=== PATIENT | female | born 1985 | race Two or more races ===

== ENCOUNTER 2019-08-09 10:48 | Inpatient (IN) | payer OTHER ==
[~2019-08-09] VITALS: Ht 157.5 cm; Wt 74.2 kg
--- NOTE | 2019-08-09 11:12 | PHYS DOC ---
Past Medical History Past Medical History: Seizure Adult General Chief Complaint Chief Complaint: SEIZURE HPI HPI Patient is a 33 year old female with history of seizure who presents via EMS because of seizure. Patient mother stated that she had 2 episodes of grand mal seizure without loss of urine or bowel and several episodes of focal seizures today. Patient is in postictal condition and unable to give history. Patient seen and neurologist at [facility] change Depakote to Zonifamide 6 months ago and had another episode of seizure one week ago. Patient denies and using drugs or alcohol or missing his medication. Patient had intermittent episodes of focal seizure at arrival to ER that was stopped with Ativan 2 mg IV. Review of Systems Review of Systems Unable to obtain because of postictal condition Current Medications Current Medications Current Medications Medications (Trade) Dose Ordered Sig/Luly Start Time Stop Time Status Last Admin Dose Admin Lorazepam (Ativan Inj) 2 mg 1X ONCE 08/09/19 11:00 08/09/19 11:16 DC 08/09/19 11:01 2 MG Physical Exam Physical Exam Constitutional: Well developed, well nourished, mild distress, non-toxic appearance. [] HENT: Normocephalic, atraumatic. Eyes: PERRLA, EOMI, conjunctiva normal, no discharge. [] Neck: Normal range of motion, no tenderness, supple, no stridor. [] Cardiovascular:Heart rate regular rhythm, no murmur [] Lungs & Thorax: Bilateral breath sounds clear to auscultation [] Abdomen: Bowel sounds normal, soft, no tenderness, no masses, no pulsatile masses. [] Skin: Warm, dry, no erythema, no rash. [] Back: No tenderness, no CVA tenderness. [] Extremities: No tenderness, no cyanosis, no clubbing, ROM intact, no edema. [] Neurologic: Alert and oriented X 1 in postictal condition, patient gradually became oriented 3, no focal deficits noted. [] Psychologic: Affect normal. Current Patient Data Vital Signs Vital Signs Date Time Temp Pulse Resp B/P (MAP) Pulse Ox O2 Delivery O2 Flow Rate FiO2 08/09/19 10:51 97.1 77 16 160/90 (113) 97 Room Air 97.1 Lab Values Laboratory Tests Test 08/09/19 10:50 White Blood Count 5.1 x10^3/uL (4.0-11.0) Red Blood Count 4.25 x10^6/uL (3.50-5.40) Hemoglobin 12.2 g/dL (12.0-15.5) Hematocrit 36.2 % (36.0-47.0) Mean Corpuscular Volume 85 fL (79-100) Mean Corpuscular Hemoglobin 29 pg (25-35) Mean Corpuscular Hemoglobin Concent 34 g/dL (31-37) Red Cell Distribution Width 14.1 % (11.5-14.5) Platelet Count 254 x10^3/uL (140-400) Neutrophils (%) (Auto) 56 % (31-73) Lymphocytes (%) (Auto) 35 % (24-48) Monocytes (%) (Auto) 7 % (0-9) Eosinophils (%) (Auto) 0 % (0-3) Basophils (%) (Auto) 1 % (0-3) Neutrophils # (Auto) 2.9 x10^3/uL (1.8-7.7) Lymphocytes # (Auto) 1.8 x10^3/uL (1.0-4.8) Monocytes # (Auto) 0.4 x10^3/uL (0.0-1.1) Eosinophils # (Auto) 0.0 x10^3/uL (0.0-0.7) Basophils # (Auto) 0.0 x10^3/uL (0.0-0.2) Sodium Level 139 mmol/L (136-145) Potassium Level 3.4 mmol/L (3.5-5.1) L Chloride Level 105 mmol/L (98-107) Carbon Dioxide Level 23 mmol/L (21-32) Anion Gap 11 (6-14) Blood Urea Nitrogen 11 mg/dL (7-20) Creatinine 0.8 mg/dL (0.6-1.0) Estimated GFR (Cockcroft-Gault) 82.1 BUN/Creatinine Ratio 14 (6-20) Glucose Level 97 mg/dL (70-99) Calcium Level 9.2 mg/dL (8.5-10.1) Total Bilirubin 0.3 mg/dL (0.2-1.0) Aspartate Amino Transferase (AST) 13 U/L (15-37) L Alanine Aminotransferase (ALT) 14 U/L (14-59) Alkaline Phosphatase 61 U/L (46-116) Creatine Kinase 41 U/L (26-192) Total Protein 7.8 g/dL (6.4-8.2) Albumin 4.0 g/dL (3.4-5.0) Albumin/Globulin Ratio 1.1 (1.0-1.7) Serum Test, Qualitative Negative (NEG) Laboratory Tests 08/09/19 10:50 Laboratory Tests 08/09/19 10:50 EKG EKG EKG interpreted by me. EKG at 1128 showed normal sinus rhythm at rate of 95 normal. And QT intervals, no acute ST and T-wave elevation. Radiology/Procedures Radiology/Procedures [facility] [address] [place] [address] IMAGING REPORT Signed PATIENT: JOSEFINA MARTINEZ ACCOUNT: [id number] : 1985 LOCATION: ED HOLD AGE: 33 SEX: F EXAM STATUS: ADM IN ORD. PHYSICIAN: KIRA MAURER MD REASON: seizure PROCEDURE: CT HEAD WO CONTRAST PQRS Compliance Statement: One or more of the following individualized dose reduction techniques were utilized for this examination: 1. Automated exposure control 2. Adjustment of the mA and/or kV according to patient size 3. Use of iterative reconstruction technique CT head without contrast 08/09/2019 11:06 AM INDICATION: Seizure COMPARISON: None available TECHNIQUE: Multiple axial CT images of the head were obtained from skull base through the vertex without intravenous contrast. FINDINGS: Head: Ventricles, sulci and basal cisterns are within normal limits. There is no hydrocephalus. Carl-white matter differentiation is normal. There is no acute intracranial hemorrhage. There is no mass, mass effect or midline shift. Posterior fossa is normal in appearance. Visualized portions of the orbits are normal. Paranasal sinuses are well aerated. Mastoid air cells are well aerated. Scalp and calvaria are normal. IMPRESSION: No acute intracranial hemorrhage. Electronically signed by: Magui Reyes MD (08/09/2019 12:38 PM) [id number] Course & Med Decision Making Course & Med Decision Making Pertinent Labs and Imaging studies reviewed. (See chart for details) Evaluation of patient in ER showed 33-year-old female patient with history of seizure with several episodes of seizure today. Patient was in postictal condition with unremarkable labs. CT was unremarkable. Because of several episodes of seizure plan to admit patient for observation. Patient had Ativan at arrival to ER without having seizure while she was in the emergency room. Patient requiring admission for further evaluation and treatment. Discussed with Dr. Nguyen who is in agreement with admission. Discussed findings and plan with patient and family, who acknowledge understanding and agreement. Dragon Disclaimer Dragon Disclaimer This electronic medical record was generated, in whole or in part, using a voice recognition dictation system. Departure Departure Impression: Primary Impression: Status epilepticus Additional Impression: Hypokalemia Disposition: 09 ADMITTED INPATIENT (at 1111) Admitting Physician: TIFFANY (Dr. Nguyenaccepted admission at 1110) Condition: GUARDED Referrals: UNKNOWN PCP NAME (PCP) Problem Qualifiers KIRA MAURER MD Aug 09, 2019 11:12
[2019-08-09] MEDS ORDERED: IV NORMAL SALINE 1000ML BAG 1,000 ML IV ONE (11:15)
[2019-08-09 11:24] LABS: BASO % 1 % (0-3); EOS % 0 % (0-3); HEMATOCRIT 36.2 % (36.0-47.0); HEMOGLOBIN 12.2 g/dL (12.0-15.5); LYMPH # 1.8 x10^3/uL (1.0-4.8); LYMPH % 35 % (24-48); MEAN CORPUSCULAR HEMOGLOBIN 29 pg (25-35); MEAN CORPUSCULAR HGB CONC 34 g/dL (31-37); MEAN CORPUSCULAR VOLUME 85 fL (79-100); MONO # 0.4 x10^3/uL (0.0-1.1); MONO % 7 % (0-9); NEUT # 2.9 x10^3/uL (1.8-7.7); NEUT % 56 % (31-73); PLATELET COUNT 254 x10^3/uL (140-400); RED BLOOD COUNT 4.25 x10^6/uL (3.50-5.40); RED CELL DISTRIBUTION WIDTH 14.1 % (11.5-14.5); WHITE BLOOD COUNT 5.1 x10^3/uL (4.0-11.0)
[2019-08-09 11:30] LABS: CALCIUM 9.2 mg/dL (8.5-10.1); CREATININE 0.8 mg/dL (0.6-1.0); GFR 82.1; POTASSIUM 3.4 mmol/L (3.5-5.1)
[2019-08-09 11:37] LABS: ALBUMIN/GLOBULIN RATIO 1.1 (1.0-1.7); TOTAL BILIRUBIN 0.3 mg/dL (0.2-1.0); TOTAL PROTEIN 7.8 g/dL (6.4-8.2)
--- NOTE | 2019-08-09 11:39 | PDOC1 ---
History and Physical Date of Admission: Date of Admission DATE: 08/09/19 TIME: 11:36 Chief Complaint: Chief Complain: Seizures History of Present Illness: HPI: This is a 33-year-old female who has had seizures since she was 7 years old We just adjusted her meds recently about 6 months ago Now she is having breakthrough seizures today She has had several was morning There witnessed by her mom and [id number] She has full tonic-clonic seizures She has urinary incontinence when she has the seizures Almost bites her tongue I discussed the case with ER physician were going to admit the patient and consult neurology and readjust her seizure meds Past Medical/Surgical History: PMH/PSH: Seizures Allergies: Allergies: Coded Allergies: No Known Drug Allergies (Unverified , 08/09/19) Family History: Family History: Hypertension Social History: Social Hisoty: She does not drink smoke or take drugs She works at [employer] Has 4 children the oldest is 17 Current Medications: Current Medications Current Medications Lorazepam (Ativan Inj) 2 mg STK-MED ONCE .ROUTE ; Start 08/09/19 at 10:53; Stop 08/09/19 at 10:53; Status DC Lorazepam (Ativan Inj) 2 mg 1X ONCE IVP Last administered on 08/09/19at 11:01; Start 08/09/19 at 11:00; Stop 08/09/19 at 11:16; Status DC Sodium Chloride 1,000 ml @ 1,000 mls/hr 1X ONCE IV ; Start 08/09/19 at 11:15; Stop 08/09/19 at 12:14 ROS: Review of Systems Review of System REVIEW OF SYSTEMS: GENERAL: Denies weakness SKIN: No bruising, hair changes or rashes. EYES: No blurred, double or loss of vision. NOSE AND THROAT: No history of nosebleeds, hoarseness or sore throat. HEART: No history of palpitations, chest pain or shortness of breath on exertion. LUNGS: Denies cough, hemoptysis, wheezing or shortness of breath. GASTROINTESTINAL: Denies changes in appetite, nausea, vomiting, diarrhea or constipation. GENITOURINARY: No history of frequency, urgency, hesitancy or nocturia. NEUROLOGIC: Complains of intermittent seizures today PSYCHIATRIC: Complains of depression ENDOCRINE: No history of heat or cold intolerance, polyuria or polydipsia. EXTREMITIES: Denies muscle weakness, joint pain, pain on walking or stiffness. Physical Exam: Vital Signs: Vital Signs Date Time Temp Pulse Resp B/P (MAP) Pulse Ox O2 Delivery O2 Flow Rate FiO2 08/09/19 10:51 97.1 77 16 160/90 (113) 97 Room Air 97.1 Physcial Exam: GEN: No apparent distress. Alert and oriented but slightly weak slow to answer questions HEENT: Normal cephalic, atraumatic, external auditory canals are patent EYES: Extraocular muscles are intact, pupil are equally round and reactive to light and accommodation MUSCULOSKELETAL: Well developed , well nourished, good range of motion ENDOCRINE: No thyromegaly was palpated LYMPHATICS: No cervical chain or axillary nodes were noted HEMATOPOIETIC: No bruising NECK: Supple, no JVD, no thyromegaly was noted LUNGS: Clear to auscultation in all lung herrera without rhonchi or wheezing HEART: RRR, S!, S2 present. Peripheral pulses intact, no obvious murmurs noted ABDOMEN: Soft, nontender. Positive bowel sounds, no organomegaly, normal bowel sounds EXTREMITIES: Without clubbing, cyanosis, or edema. Pedal pulses intact. Negative Homans sign NEUROLOGIC: Slow to answer questions A&O x 3, moves all extremities, no obvio us focal deficits PSYCHIATRIC: Normal affect, normal mood. Stable SKIN: No ulcerations or rashes, good skin turgor, no jaundice VASCULAR: Good capillary refill, neurovascular bundle appears to be intact Labs: Labs: Laboratory Tests Test 08/09/19 10:50 White Blood Count 5.1 x10^3/uL (4.0-11.0) Red Blood Count 4.25 x10^6/uL (3.50-5.40) Hemoglobin 12.2 g/dL (12.0-15.5) Hematocrit 36.2 % (36.0-47.0) Mean Corpuscular Volume 85 fL (79-100) Mean Corpuscular Hemoglobin 29 pg (25-35) Mean Corpuscular Hemoglobin Concent 34 g/dL (31-37) Red Cell Distribution Width 14.1 % (11.5-14.5) Platelet Count 254 x10^3/uL (140-400) Neutrophils (%) (Auto) 56 % (31-73) Lymphocytes (%) (Auto) 35 % (24-48) Monocytes (%) (Auto) 7 % (0-9) Eosinophils (%) (Auto) 0 % (0-3) Basophils (%) (Auto) 1 % (0-3) Neutrophils # (Auto) 2.9 x10^3/uL (1.8-7.7) Lymphocytes # (Auto) 1.8 x10^3/uL (1.0-4.8) Monocytes # (Auto) 0.4 x10^3/uL (0.0-1.1) Eosinophils # (Auto) 0.0 x10^3/uL (0.0-0.7) Basophils # (Auto) 0.0 x10^3/uL (0.0-0.2) Sodium Level 139 mmol/L (136-145) Potassium Level 3.4 mmol/L (3.5-5.1) Chloride Level 105 mmol/L (98-107) Carbon Dioxide Level 23 mmol/L (21-32) Anion Gap 11 (6-14) Blood Urea Nitrogen 11 mg/dL (7-20) Creatinine 0.8 mg/dL (0.6-1.0) Estimated GFR (Cockcroft-Gault) 82.1 BUN/Creatinine Ratio 14 (6-20) Glucose Level 97 mg/dL (70-99) Calcium Level 9.2 mg/dL (8.5-10.1) Laboratory Tests Test 08/09/19 10:50 White Blood Count 5.1 x10^3/uL (4.0-11.0) Red Blood Count 4.25 x10^6/uL (3.50-5.40) Hemoglobin 12.2 g/dL (12.0-15.5) Hematocrit 36.2 % (36.0-47.0) Mean Corpuscular Volume 85 fL (79-100) Mean Corpuscular Hemoglobin 29 pg (25-35) Mean Corpuscular Hemoglobin Concent 34 g/dL (31-37) Red Cell Distribution Width 14.1 % (11.5-14.5) Platelet Count 254 x10^3/uL (140-400) Neutrophils (%) (Auto) 56 % (31-73) Lymphocytes (%) (Auto) 35 % (24-48) Monocytes (%) (Auto) 7 % (0-9) Eosinophils (%) (Auto) 0 % (0-3) Basophils (%) (Auto) 1 % (0-3) Neutrophils # (Auto) 2.9 x10^3/uL (1.8-7.7) Lymphocytes # (Auto) 1.8 x10^3/uL (1.0-4.8) Monocytes # (Auto) 0.4 x10^3/uL (0.0-1.1) Eosinophils # (Auto) 0.0 x10^3/uL (0.0-0.7) Basophils # (Auto) 0.0 x10^3/uL (0.0-0.2) Sodium Level 139 mmol/L (136-145) Potassium Level 3.4 mmol/L (3.5-5.1) Chloride Level 105 mmol/L (98-107) Carbon Dioxide Level 23 mmol/L (21-32) Anion Gap 11 (6-14) Blood Urea Nitrogen 11 mg/dL (7-20) Creatinine 0.8 mg/dL (0.6-1.0) Estimated GFR (Cockcroft-Gault) 82.1 BUN/Creatinine Ratio 14 (6-20) Glucose Level 97 mg/dL (70-99) Calcium Level 9.2 mg/dL (8.5-10.1) Images: Images CT of the head did not show any acute changes Assessment/Plan Assessment/Plan Acute on chronic seizure disorder with acute flare of 4 seizures this morning Plan We need to readjust her seizure medications Seizure precautions Consult neurology IV fluids Home meds DVT prophylaxis Full code JIM LEDESMA III DO Aug 09, 2019 11:39
[2019-08-09] MEDS ORDERED: ZONI100C33 PO (11:45)
[2019-08-09 11:53] LABS: PREG TEST PT QUAL NEGATIVE (NEG)
[2019-08-09 12:05] LABS: BARBITURATES NEG (NEG); BENZODIAZEPINES NEG (NEG); CANNABINOIDS POS (NEG); COCAINE NEG (NEG); METHADONE NEG (NEG); OPIATES NEG (NEG); PHENCYCLIDINE NEG (NEG)
[2019-08-09 12:14] LABS: AMPHETAMINE/METHAMPHETAMINE NEG (NEG)
[2019-08-09 12:24] LABS: BILIRUBIN,URINE NEGATIVE (NEG); CLARITY,URINE CLEAR; COLOR,URINE YELLOW; NITRITE,URINE NEGATIVE (NEG); PH,URINE 6.5; PROTEIN,URINE NEGATIVE (NEG-TRACE)
[2019-08-09 12:26] LABS: BACTERIA,URINE FEW /HPF (0-FEW); RBC,URINE OCC /HPF (0-2); SQUAMOUS EPITHELIAL CELL,UR FEW /LPF
--- NOTE | 2019-08-09 12:30 | EKG ---
[facility] [address] [place] [address] Test Date: 2019-08-09 Test Time: 11:28:52 Pat Name: JOSEFINA MARTINEZ Department: Room: Gender: F Machine Maintenance Repairer: : 1985 Requested By: KIRA MAURER Order Number: [id number] Reading MD: Measurements Intervals [place] Rate: 83 P: 34 WV: 146 QRS: 36 QRSD: 100 T: 35 QT: 346 QTc: 411 Interpretive Statements SINUS RHYTHM NORMAL ECG No previous ECG available for comparison
--- NOTE | 2019-08-09 12:41 | RAD ---
PQRS Compliance Statement: One or more of the following individualized dose reduction techniques were utilized for this examination: 1. Automated exposure control 2. Adjustment of the mA and/or kV according to patient size 3. Use of iterative reconstruction technique CT head without contrast 08/09/2019 11:06 AM INDICATION: Seizure COMPARISON: None available TECHNIQUE: Multiple axial CT images of the head were obtained from skull base through the vertex without intravenous contrast. FINDINGS: Head: Ventricles, sulci and basal cisterns are within normal limits. There is no hydrocephalus. Carl-white matter differentiation is normal. There is no acute intracranial hemorrhage. There is no mass, mass effect or midline shift. Posterior fossa is normal in appearance. Visualized portions of the orbits are normal. Paranasal sinuses are well aerated. Mastoid air cells are well aerated. Scalp and calvaria are normal. IMPRESSION: No acute intracranial hemorrhage. Electronically signed by: Magui Ryees MD (08/09/2019 12:38 PM) [id number]
[2019-08-09 16:52] VITALS: BP 116/81
--- NOTE | 2019-08-09 18:12 | PDOC2 ---
NEUROLOGY CONSULT Date of Admission Date of Admission DATE: 08/09/19 TIME: 18:06 Reason for Consult Reason for Consult: status epilepticus Referring Physician Referring Physician: Dr. Nguyen Source Source: Caregiver (mother), Chart review, Patient History of Present Illness History of Present Illness The patient is a 33-year-old right-handed female with seizures at since age 7. She usually follows at . Mother says I last saw the patient about 20 years ago. She has been on Depakote for several years but about 6 months ago was switched to zonisamide. Mother would prefer switching her back to Depakote. There is no history of head injury or family history of seizures. She has generalized convulsions with incontinence and had 3 [id number] seizures this morning. She thinks she may have a urinary tract infection. She feels better now. I was not notified of this consult, I did see her on my list, no anticonvulsants have been started yet. Past Medical History CENTRAL NERVOUS SYSTEM: Seizure Past Surgical History Past Surgical History: No pertinent history Family History Family History: No pertinent hx Social History Social History Lives with mother, works at [employer], alcohol on weekends, no tobacco or street drugs Current Medications Current Medications Current Medications Lorazepam (Ativan Inj) 2 mg STK-MED ONCE .ROUTE ; Start 08/09/19 at 10:53; Stop 08/09/19 at 10:53; Status DC Lorazepam (Ativan Inj) 2 mg 1X ONCE IVP Last administered on 08/09/19at 11:01; Start 08/09/19 at 11:00; Stop 08/09/19 at 11:16; Status DC Sodium Chloride 1,000 ml @ 1,000 mls/hr 1X ONCE IV Last administered on 08/09/19at 11:50; Start 08/09/19 at 11:15; Stop 08/09/19 at 12:21; Status DC Active Scripts Active Reported Zonegran (Zonisamide) 100 Mg Capsule 3 Cap PO DAILYWSUP 30 Days Allergies Allergies: Coded Allergies: No Known Drug Allergies (Unverified , 08/09/19) ROS Review of System Negative for fever, chills, weight loss, shortness of breath, chest pain, indigestion, hematochezia, melena, and dysuria. Full 14-point review of systems is negative. Physical Exam Physical Examination General: Well-developed, well-nourished, white female, in no acute distress HEENT: Normocephalic andatraumatic. Temporal arteriespulsatile and nontender. Neck: Supple without bruit, no meningismus Musculoskeletal: Stability:see neurologic. Gait exam:see neurologic. Tone:see neurologic.Strength:see neurologic. Neurological: Mental Status:intact, orientation, memory, attention span/concentration, language, fund of knowledge normal. Cranial Nerves:Pupils equal and reactive to light, extraocular movements areintact, visual herrera are full to confrontation. Facial sensation is normal. There is no facial asymmetry. Vestibulo-ocular reflex is intact. Palate elevates and tongue protrudes in midline. All other cranial related problems are negative except as mentioned before.Reflexes:2+ and symmetric with flexor plantar responses. Motor:5/5 strength with normal tone and bulk. Coordination:Finger-nose finger and [id number]-zx-klta testing are normal. Rapid alternating movements and fine finger movements are intact. Gait:a little unsteady. Sensory:Normal pinprick, vibration, light touch, proprioception. Vitals VITALS Vital Signs Date Time Temp Pulse Resp B/P (MAP) Pulse Ox O2 Delivery O2 Flow Rate FiO2 08/09/19 16:52 98.1 94 18 116/81 (93) 100 Room Air 98.1 Labs Labs Laboratory Tests Test 08/09/19 10:50 08/09/19 11:34 White Blood Count 5.1 x10^3/uL (4.0-11.0) Red Blood Count 4.25 x10^6/uL (3.50-5.40) Hemoglobin 12.2 g/dL (12.0-15.5) Hematocrit 36.2 % (36.0-47.0) Mean Corpuscular Volume 85 fL (79-100) Mean Corpuscular Hemoglobin 29 pg (25-35) Mean Corpuscular Hemoglobin Concent 34 g/dL (31-37) Red Cell Distribution Width 14.1 % (11.5-14.5) Platelet Count 254 x10^3/uL (140-400) Neutrophils (%) (Auto) 56 % (31-73) Lymphocytes (%) (Auto) 35 % (24-48) Monocytes (%) (Auto) 7 % (0-9) Eosinophils (%) (Auto) 0 % (0-3) Basophils (%) (Auto) 1 % (0-3) Neutrophils # (Auto) 2.9 x10^3/uL (1.8-7.7) Lymphocytes # (Auto) 1.8 x10^3/uL (1.0-4.8) Monocytes # (Auto) 0.4 x10^3/uL (0.0-1.1) Eosinophils # (Auto) 0.0 x10^3/uL (0.0-0.7) Basophils # (Auto) 0.0 x10^3/uL (0.0-0.2) Sodium Level 139 mmol/L (136-145) Potassium Level 3.4 mmol/L (3.5-5.1) Chloride Level 105 mmol/L (98-107) Carbon Dioxide Level 23 mmol/L (21-32) Anion Gap 11 (6-14) Blood Urea Nitrogen 11 mg/dL (7-20) Creatinine 0.8 mg/dL (0.6-1.0) Estimated GFR (Cockcroft-Gault) 82.1 BUN/Creatinine Ratio 14 (6-20) Glucose Level 97 mg/dL (70-99) Calcium Level 9.2 mg/dL (8.5-10.1) Total Bilirubin 0.3 mg/dL (0.2-1.0) Aspartate Amino Transf (AST/SGOT) 13 U/L (15-37) Alanine Aminotransferase (ALT/SGPT) 14 U/L (14-59) Alkaline Phosphatase 61 U/L (46-116) Creatine Kinase 41 U/L (26-192) Total Protein 7.8 g/dL (6.4-8.2) Albumin 4.0 g/dL (3.4-5.0) Albumin/Globulin Ratio 1.1 (1.0-1.7) Serum Test, Qualitative Negative (NEG) Urine Collection Type U cath Urine Color Yellow Urine Clarity Clear Urine pH 6.5 Urine Specific [place] 1.025 Urine Protein Negative mg/dL (NEG-TRACE) Urine Glucose (UA) Negative mg/dL (NEG) Urine Ketones (Stick) Negative mg/dL (NEG) Urine Blood Negative (NEG) Urine Nitrite Negative (NEG) Urine Bilirubin Negative (NEG) Urine Urobilinogen Dipstick 1.0 mg/dL (0.2 mg/dL) Urine Leukocyte Esterase Negative (NEG) Urine RBC Occ /HPF (0-2) Urine WBC 1-4 /HPF (0-4) Urine Squamous Epithelial Cells Few /LPF Urine Bacteria Few /HPF (0-FEW) Urine Mucus Mod /LPF Urine Opiates Screen Neg (NEG) Urine Methadone Screen Neg (NEG) Urine Barbiturates Neg (NEG) Urine Phencyclidine Screen Neg (NEG) Urine Amphetamine/Methamphetamine Neg (NEG) Urine Benzodiazepines Screen Neg (NEG) Urine Cocaine Screen Neg (NEG) Urine Cannabinoids Screen Pos (NEG) Urine Ethyl Alcohol Neg (NEG) Laboratory Tests Test 08/09/19 10:50 08/09/19 11:34 White Blood Count 5.1 x10^3/uL (4.0-11.0) Red Blood Count 4.25 x10^6/uL (3.50-5.40) Hemoglobin 12.2 g/dL (12.0-15.5) Hematocrit 36.2 % (36.0-47.0) Mean Corpuscular Volume 85 fL (79-100) Mean Corpuscular Hemoglobin 29 pg (25-35) Mean Corpuscular Hemoglobin Concent 34 g/dL (31-37) Red Cell Distribution Width 14.1 % (11.5-14.5) Platelet Count 254 x10^3/uL (140-400) Neutrophils (%) (Auto) 56 % (31-73) Lymphocytes (%) (Auto) 35 % (24-48) Monocytes (%) (Auto) 7 % (0-9) Eosinophils (%) (Auto) 0 % (0-3) Basophils (%) (Auto) 1 % (0-3) Neutrophils # (Auto) 2.9 x10^3/uL (1.8-7.7) Lymphocytes # (Auto) 1.8 x10^3/uL (1.0-4.8) Monocytes # (Auto) 0.4 x10^3/uL (0.0-1.1) Eosinophils # (Auto) 0.0 x10^3/uL (0.0-0.7) Basophils # (Auto) 0.0 x10^3/uL (0.0-0.2) Sodium Level 139 mmol/L (136-145) Potassium Level 3.4 mmol/L (3.5-5.1) Chloride Level 105 mmol/L (98-107) Carbon Dioxide Level 23 mmol/L (21-32) Anion Gap 11 (6-14) Blood Urea Nitrogen 11 mg/dL (7-20) Creatinine 0.8 mg/dL (0.6-1.0) Estimated GFR (Cockcroft-Gault) 82.1 BUN/Creatinine Ratio 14 (6-20) Glucose Level 97 mg/dL (70-99) Calcium Level 9.2 mg/dL (8.5-10.1) Total Bilirubin 0.3 mg/dL (0.2-1.0) Aspartate Amino Transf (AST/SGOT) 13 U/L (15-37) Alanine Aminotransferase (ALT/SGPT) 14 U/L (14-59) Alkaline Phosphatase 61 U/L (46-116) Creatine Kinase 41 U/L (26-192) Total Protein 7.8 g/dL (6.4-8.2) Albumin 4.0 g/dL (3.4-5.0) Albumin/Globulin Ratio 1.1 (1.0-1.7) Serum Test, Qualitative Negative (NEG) Urine Collection Type U cath Urine Color Yellow Urine Clarity Clear Urine pH 6.5 Urine Specific [place] 1.025 Urine Protein Negative mg/dL (NEG-TRACE) Urine Glucose (UA) Negative mg/dL (NEG) Urine Ketones (Stick) Negative mg/dL (NEG) Urine Blood Negative (NEG) Urine Nitrite Negative (NEG) Urine Bilirubin Negative (NEG) Urine Urobilinogen Dipstick 1.0 mg/dL (0.2 mg/dL) Urine Leukocyte Esterase Negative (NEG) Urine RBC Occ /HPF (0-2) Urine WBC 1-4 /HPF (0-4) Urine Squamous Epithelial Cells Few /LPF Urine Bacteria Few /HPF (0-FEW) Urine Mucus Mod /LPF Urine Opiates Screen Neg (NEG) Urine Methadone Screen Neg (NEG) Urine Barbiturates Neg (NEG) Urine Phencyclidine Screen Neg (NEG) Urine Amphetamine/Methamphetamine Neg (NEG) Urine Benzodiazepines Screen Neg (NEG) Urine Cocaine Screen Neg (NEG) Urine Cannabinoids Screen Pos (NEG) Urine Ethyl Alcohol Neg (NEG) Images Images CT head without contrast 08/09/2019 11:06 AM INDICATION: Seizure COMPARISON: None available TECHNIQUE: Multiple axial CT images of the head were obtained from skull base through the vertex without intravenous contrast. FINDINGS: Head: Ventricles, sulci and basal cisterns are within normal limits. There is no hydrocephalus. Calr-white matter differentiation is normal. There is no acute intracranial hemorrhage. There is no mass, mass effect or midline shift. Posterior fossa is normal in appearance. Visualized portions of the orbits are normal. Paranasal sinuses are well aerated. Mastoid air cells are well aerated. Scalp and calvaria are normal. IMPRESSION: No acute intracranial hemorrhage. Assessment/Plan Assessment/Plan Impression: Epilepsy, breakthrough seizures, no obvious cause Urine drug screen, however, positive for cannabinoids. Recommendations: Resume zonisamide. Also restart Depakote 500 mg twice a day, can be switched to 500 mg extended release 2 at bedtime per the previous regimen, after a few weeks. Overlap 2 anticonvulsants for a few weeks Follow-up with neurology [facility] for discharge as soon as tomorrow. I fully discussed with the patient and her mother. Thank you for letting me help with the patient's care. RICARDO ANTOINE MD Aug 09, 2019 18:12
[2019-08-09] MEDS ORDERED: ACETAMINOPHEN 500 MG TABLET PO PRN (18:15)
[2019-08-09] MEDS ORDERED: ONDANSETRON PF 4 MG/2 ML VIAL. IVP PRN (19:30)
[2019-08-09 19:50] VITALS: BP 125/80
[2019-08-09] MEDS: DIVALPROEX EXTENDED RELEASE 500 MG TAB.ER.24H. PO SCH (19:55)
[2019-08-09] MEDS: ZONISAMIDE 100 MG CAPSULE. PO SCH (19:56)
[2019-08-09 23:21] VITALS: BP 103/63
[2019-08-10 03:56] VITALS: BP 121/80
[2019-08-10 07:00] VITALS: BP 122/85
[2019-08-10] MEDS: DIVALPROEX EXTENDED RELEASE 500 MG TAB.ER.24H. PO SCH ×2 (08:56→20:33)
[2019-08-10] MEDS ORDERED: IBUPROFEN 400 MG TABLET. PO PRN (09:30)
--- NOTE | 2019-08-10 09:30 | NUR ---
Patient pulled bathroom light at 0850. PHOTOENGRAVING ETCHER found patient sitting on floor in bathroom. Patient states that she went to stand from toilet and became dizzy and fell back onto her bottom and was able to pull bathroom light. Patient has no c/o pain. Skin WNL. Vitals- bp-119/79, p-100, r-16, t-97.9, O2-98%RA. Patient assisted up and into chair. Patient alert and oriented. No more c/o dizziness. Chair alarm on. Call light within reach. Dr. Nguyen notified. Will continue to monitor.
[2019-08-10 11:00] VITALS: BP 119/78
--- NOTE | 2019-08-10 12:10 | PDOC ---
[employer] PROGRESS NOTE Chief Complaint Chief Complaint Acute on chronic seizure disorder History of Present Illness History of Present Illness 08/10/19 Pt seen and examined Pt was sleeping in her chair this AM DW pt Pt's chart reviewed Vitals/I&O Vitals/I&O: Vital Signs Date Time Temp Pulse Resp B/P (MAP) Pulse Ox O2 Delivery O2 Flow Rate FiO2 08/10/19 11:00 98.5 102 16 119/78 (92) 98 Room Air 98.5 I & O 08/09/19 08/09/19 08/10/19 14:59 22:59 06:59 Intake Total 1000 ml 700 ml Balance 1000 ml 700 ml Physical Exam General: Cooperative Heart: Regular rate, Normal S1, Normal S2 Lungs: Clear Extremities: No cyanosis Skin: No significant lesion Review of Systems Review of Systems: c/o N/V no c/o chills or fever Assessment and Plan Assessmemt and Plan Problems Medical Problems: (1) Hypokalemia Status: Acute (2) Status epilepticus Status: Acute Assessment Acute on chronic seizure disorder Plan Neurology is following. Adjust seizure meds per neuro Seizure precautions IV fluids Home meds DVT prophylaxis Full code Plan for D/C pending neuro Comment Review of Relevant I have reviewed the following items braulio (where applicable) has been applied. Medications: Current Medications Medications (Trade) Dose Ordered Sig/Luly Route PRN Reason Start Time Stop Time Status Last Admin Dose Admin Divalproex Sodium (Depakote Er) 500 mg BID PO 08/09/19 21:00 08/10/19 08:56 Acetaminophen (Tylenol) 1,000 mg PRN Q6HRS PRN PO pain 08/09/19 18:15 08/10/19 09:03 Zonisamide (Zonegran) 300 mg DAILYWSUP PO 08/09/19 19:00 08/09/19 19:56 Lorazepam (Ativan Inj) 2 mg PRN Q2HRS PRN IVP seizure activity 08/09/19 19:30 08/09/19 19:40 Ondansetron HCl (Zofran) 4 mg PRN Q6HRS PRN IVP NAUSEA/VOMITING 08/09/19 19:30 08/10/19 01:52 JIM LEDESMA III DO Aug 10, 2019 12:09
--- NOTE | 2019-08-10 13:07 | PDOC ---
PROGRESS NOTES Assessment Problems Medical Problems: (1) Hypokalemia Status: Acute (2) Status epilepticus Status: Acute Epilepsy, breakthrough seizures, no obvious cause. She had another seizure last night, I was not notified Urine drug screen, however, positive for cannabinoids. Plan Resumed zonisamide. Restarted Depakote 500 mg twice a day, can be switched to 500 mg extended release 2 at bedtime per the previous regimen, after a few weeks. Overlap 2 anticonvulsants for a few weeks Follow-up with neurology Observe 1 more night, still dizzy Subjective Still feels dizzy Objective Vital Signs Date Time Temp Pulse Resp B/P (MAP) Pulse Ox O2 Delivery O2 Flow Rate FiO2 08/10/19 11:00 98.5 102 16 119/78 (92) 98 Room Air 98.5 Intake and Output 08/10/19 07:00 Intake Total 1700 ml Balance 1700 ml Intake Oral 700 ml IV Total 1000 ml # Voids 3 PHYSICAL EXAM Alert. Oriented to time, place and person. PERRL. EOMI. CN: no focal findings. Muscle tone: normal. Muscle strength:5/5 DTR: 2+ Plantar reflex: flexor Gait: unsteady. Sensory exam: no abnormal findings. No cerebellar signs elicited. Review of Relevant I have reviewed the following items braulio (where applicable) has been applied. Labs Laboratory Tests Test 08/09/19 10:50 08/09/19 11:34 White Blood Count 5.1 x10^3/uL (4.0-11.0) Red Blood Count 4.25 x10^6/uL (3.50-5.40) Hemoglobin 12.2 g/dL (12.0-15.5) Hematocrit 36.2 % (36.0-47.0) Mean Corpuscular Volume 85 fL (79-100) Mean Corpuscular Hemoglobin 29 pg (25-35) Mean Corpuscular Hemoglobin Concent 34 g/dL (31-37) Red Cell Distribution Width 14.1 % (11.5-14.5) Platelet Count 254 x10^3/uL (140-400) Neutrophils (%) (Auto) 56 % (31-73) Lymphocytes (%) (Auto) 35 % (24-48) Monocytes (%) (Auto) 7 % (0-9) Eosinophils (%) (Auto) 0 % (0-3) Basophils (%) (Auto) 1 % (0-3) Neutrophils # (Auto) 2.9 x10^3/uL (1.8-7.7) Lymphocytes # (Auto) 1.8 x10^3/uL (1.0-4.8) Monocytes # (Auto) 0.4 x10^3/uL (0.0-1.1) Eosinophils # (Auto) 0.0 x10^3/uL (0.0-0.7) Basophils # (Auto) 0.0 x10^3/uL (0.0-0.2) Sodium Level 139 mmol/L (136-145) Potassium Level 3.4 mmol/L (3.5-5.1) Chloride Level 105 mmol/L (98-107) Carbon Dioxide Level 23 mmol/L (21-32) Anion Gap 11 (6-14) Blood Urea Nitrogen 11 mg/dL (7-20) Creatinine 0.8 mg/dL (0.6-1.0) Estimated GFR (Cockcroft-Gault) 82.1 BUN/Creatinine Ratio 14 (6-20) Glucose Level 97 mg/dL (70-99) Calcium Level 9.2 mg/dL (8.5-10.1) Total Bilirubin 0.3 mg/dL (0.2-1.0) Aspartate Amino Transf (AST/SGOT) 13 U/L (15-37) Alanine Aminotransferase (ALT/SGPT) 14 U/L (14-59) Alkaline Phosphatase 61 U/L (46-116) Creatine Kinase 41 U/L (26-192) Total Protein 7.8 g/dL (6.4-8.2) Albumin 4.0 g/dL (3.4-5.0) Albumin/Globulin Ratio 1.1 (1.0-1.7) Serum Test, Qualitative Negative (NEG) Urine Collection Type U cath Urine Color Yellow Urine Clarity Clear Urine pH 6.5 Urine Specific [place] 1.025 Urine Protein Negative mg/dL (NEG-TRACE) Urine Glucose (UA) Negative mg/dL (NEG) Urine Ketones (Stick) Negative mg/dL (NEG) Urine Blood Negative (NEG) Urine Nitrite Negative (NEG) Urine Bilirubin Negative (NEG) Urine Urobilinogen Dipstick 1.0 mg/dL (0.2 mg/dL) Urine Leukocyte Esterase Negative (NEG) Urine RBC Occ /HPF (0-2) Urine WBC 1-4 /HPF (0-4) Urine Squamous Epithelial Cells Few /LPF Urine Bacteria Few /HPF (0-FEW) Urine Mucus Mod /LPF Urine Opiates Screen Neg (NEG) Urine Methadone Screen Neg (NEG) Urine Barbiturates Neg (NEG) Urine Phencyclidine Screen Neg (NEG) Urine Amphetamine/Methamphetamine Neg (NEG) Urine Benzodiazepines Screen Neg (NEG) Urine Cocaine Screen Neg (NEG) Urine Cannabinoids Screen Pos (NEG) Urine Ethyl Alcohol Neg (NEG) Medications Current Medications Lorazepam (Ativan Inj) 2 mg STK-MED ONCE .ROUTE ; Start 08/09/19 at 10:53; Stop 08/09/19 at 10:53; Status DC Lorazepam (Ativan Inj) 2 mg 1X ONCE IVP Last administered on 08/09/19at 11:01; Start 08/09/19 at 11:00; Stop 08/09/19 at 11:16; Status DC Sodium Chloride 1,000 ml @ 1,000 mls/hr 1X ONCE IV Last administered on 08/09/19at 11:50; Start 08/09/19 at 11:15; Stop 08/09/19 at 12:21; Status DC Divalproex Sodium (Depakote Er) 500 mg BID PO Last administered on 08/10/19at 08:56; Start 08/09/19 at 21:00 Acetaminophen (Tylenol) 1,000 mg PRN Q6HRS PRN PO pain Last administered on 08/10/19at 09:03; Start 08/09/19 at 18:15 Zonisamide (Zonegran) 300 mg DAILYWSUP PO ; Start 08/10/19 at 17:00; Stop 08/09/19 at 18:48; Status DC Zonisamide (Zonegran) 300 mg DAILYWSUP PO Last administered on 08/09/19at 19:56; Start 08/09/19 at 19:00 Lorazepam (Ativan Inj) 2 mg PRN Q2HRS PRN IVP seizure activity Last administered on 08/09/19at 19:40; Start 08/09/19 at 19:30 Ondansetron HCl (Zofran) 4 mg PRN Q6HRS PRN IVP NAUSEA/VOMITING Last administered on 08/10/19at 01:52; Start 08/09/19 at 19:30 Ibuprofen (Motrin) 400 mg PRN Q6HRS PRN PO INFLAMMATION; Start 08/10/19 at 09:30 Active Scripts Active Reported Zonegran (Zonisamide) 100 Mg Capsule 3 Cap PO DAILYWSUP 30 Days Vitals/I & O Vital Sign - Last 24 Hours 08/09/19 08/09/19 08/09/19 08/09/19 13:30 14:27 14:57 16:52 Temp 98.1 98.1 Pulse 74 74 68 94 Resp 18 18 18 18 B/P (MAP) 116/81 (93) Pulse Ox 98 98 98 100 O2 Delivery Room Air 08/09/19 08/09/19 08/09/19 08/10/19 19:50 20:01 23:21 03:56 Temp 98.3 98.2 98.4 98.3 98.2 98.4 Pulse 94 92 95 Resp 20 20 20 B/P (MAP) 125/80 (95) 103/63 (76) 121/80 (94) Pulse Ox 98 100 98 O2 Delivery Room Air Room Air Room Air Room Air 08/10/19 08/10/19 08/10/19 07:00 09:00 11:00 Temp 97.3 98.5 97.3 98.5 Pulse 83 102 Resp 12 16 B/P (MAP) 122/85 (97) 119/78 (92) Pulse Ox 98 98 O2 Delivery Room Air Room Air Room Air Intake and Output 08/09/19 08/09/19 08/10/19 15:00 23:00 07:00 Intake Total 1000 ml 700 ml Balance 1000 ml 700 ml RICARDO ANTOINE MD Aug 10, 2019 13:07
[2019-08-10 15:00] VITALS: BP 108/65
--- NOTE | 2019-08-10 15:53 | NUR ---
SS following for discharge planning. SS reviewed pt chart. Pt is from home and is currently on room air. PT/OT ordered. Discharge order on the chart for home with self care.
[2019-08-10] MEDS ORDERED: ZONISAMIDE 100 MG CAPSULE. PO SCH (17:00)
[2019-08-10] MEDS: ZONISAMIDE 100 MG CAPSULE. PO SCH (17:37)
[2019-08-10 19:44] VITALS: BP 116/75
[2019-08-10 23:49] VITALS: BP 118/73
[2019-08-11 03:05] VITALS: BP 105/73
[2019-08-11 07:00] VITALS: BP 128/84
[2019-08-11] MEDS: DIVALPROEX EXTENDED RELEASE 500 MG TAB.ER.24H. PO SCH (09:00)
--- NOTE | 2019-08-11 10:46 | PDOC ---
[employer] [facility] PROGRESS NOTE Chief Complaint Chief Complaint Acute on chronic seizure disorder History of Present Illness History of Present Illness 08/11/19 Pt seen and examined Pt was up in her bed She feels better today She requested a return to work note and was given one DW pt Pt's chart reviewed 08/10/19 Pt seen and examined Pt was sleeping in her chair this AM DW pt Pt's chart reviewed Vitals/I&O Vitals/I&O: Vital Signs Date Time Temp Pulse Resp B/P (MAP) Pulse Ox O2 Delivery O2 Flow Rate FiO2 08/11/19 08:00 Room Air 08/11/19 07:00 98.9 98 20 128/84 (99) 97 98.9 I & O 08/10/19 08/10/19 08/11/19 15:00 23:00 07:00 Intake Total 600 ml 200 ml Balance 600 ml 200 ml Physical Exam General: Alert, Cooperative Heart: Regular rate, Normal S1, Normal S2 Lungs: Clear Extremities: No cyanosis Skin: No significant lesion Review of Systems Review of Systems: no c/o dizziness no c/o n/v Assessment and Plan Assessmemt and Plan Problems Medical Problems: (1) Hypokalemia Status: Acute (2) Status epilepticus Status: Acute Assessment Acute on chronic seizure disorder Plan Neurology is following Continue seizure meds per neuro Seizure precautions IV fluids Home meds DVT prophylaxis Full code Plan for D/C pending neuro Comment Review of Relevant I have reviewed the following items braulio (where applicable) has been applied. JIM LEDESMA III DO Aug 11, 2019 10:46
[2019-08-11 11:00] VITALS: BP 116/75
--- NOTE | 2019-08-11 12:57 | PDOC ---
PROGRESS NOTES Assessment Problems Medical Problems: (1) Hypokalemia Status: Acute (2) Status epilepticus Status: Acute Epilepsy, breakthrough seizures, no obvious cause. No further seizures Urine drug screen positive for cannabinoids. Plan Resumed zonisamide. Restarted Depakote 500 mg twice a day, can be switched to 500 mg extended release 2 at bedtime per the previous regimen, after a few weeks. Overlap 2 anticonvulsants for a few weeks Follow-up with neurology Okay for discharge today Subjective Dizziness is much better, wants to go home Objective Vital Signs Date Time Temp Pulse Resp B/P (MAP) Pulse Ox O2 Delivery O2 Flow Rate FiO2 08/11/19 11:00 99.1 95 16 116/75 (89) 97 Room Air 99.1 Intake and Output 08/11/19 07:00 Intake Total 800 ml Balance 800 ml Intake Oral 800 ml # Voids 4 PHYSICAL EXAM Alert. Oriented to time, place and person. PERRL. EOMI. CN: no focal findings. Muscle tone: normal. Muscle strength:5/5 DTR: 2+ Plantar reflex: flexor Gait: unsteady, much better than yesterday. Sensory exam: no abnormal findings. No cerebellar signs elicited. Review of Relevant I have reviewed the following items braulio (where applicable) has been applied. Medications Current Medications Lorazepam (Ativan Inj) 2 mg STK-MED ONCE .ROUTE ; Start 08/09/19 at 10:53; Stop 08/09/19 at 10:53; Status DC Lorazepam (Ativan Inj) 2 mg 1X ONCE IVP Last administered on 08/09/19at 11:01; Start 08/09/19 at 11:00; Stop 08/09/19 at 11:16; Status DC Sodium Chloride 1,000 ml @ 1,000 mls/hr 1X ONCE IV Last administered on 08/09/19at 11:50; Start 08/09/19 at 11:15; Stop 08/09/19 at 12:21; Status DC Divalproex Sodium (Depakote Er) 500 mg BID PO Last administered on 08/11/19at 09:00; Start 08/09/19 at 21:00 Acetaminophen (Tylenol) 1,000 mg PRN Q6HRS PRN PO pain Last administered on 08/10/19at 09:03; Start 08/09/19 at 18:15 Zonisamide (Zonegran) 300 mg DAILYWSUP PO ; Start 08/10/19 at 17:00; Stop 08/09/19 at 18:48; Status DC Zonisamide (Zonegran) 300 mg DAILYWSUP PO Last administered on 08/10/19at 17:37; Start 08/09/19 at 19:00 Lorazepam (Ativan Inj) 2 mg PRN Q2HRS PRN IVP seizure activity Last administered on 08/09/19at 19:40; Start 08/09/19 at 19:30 Ondansetron HCl (Zofran) 4 mg PRN Q6HRS PRN IVP NAUSEA/VOMITING Last administered on 08/10/19at 01:52; Start 08/09/19 at 19:30 Ibuprofen (Motrin) 400 mg PRN Q6HRS PRN PO INFLAMMATION; Start 08/10/19 at 09:30 Active Scripts Active Reported Zonegran (Zonisamide) 100 Mg Capsule 3 Cap PO DAILYWSUP 30 Days Vitals/I & O Vital Sign - Last 24 Hours 08/10/19 08/10/19 08/10/19 08/10/19 15:00 19:44 20:00 23:49 Temp 98.3 98.7 98.8 98.3 98.7 98.8 Pulse 94 93 80 Resp 20 20 B/P (MAP) 108/65 (79) 116/75 (89) 118/73 (88) Pulse Ox 100 99 98 O2 Delivery Room Air Room Air Room Air Room Air 08/11/19 08/11/19 08/11/19 08/11/19 03:05 07:00 08:00 11:00 Temp 98.9 99.1 98.9 99.1 Pulse 89 98 95 Resp 16 B/P (MAP) 105/73 (84) 128/84 (99) 116/75 (89) Pulse Ox 98 97 97 O2 Delivery Room Air Room Air Room Air Room Air Intake and Output 08/10/19 08/10/19 08/11/19 15:00 23:00 07:00 Intake Total 600 ml 200 ml Balance 600 ml 200 ml RICARDO ANTOINE MD Aug 11, 2019 12:57
[2019-08-11 15:00] VITALS: BP 129/80
--- NOTE | 2019-08-11 15:00 | NUR ---
Pt was escorted out via wheelchair to main entrance with family member, by Tristan COX
--- NOTE | 2019-08-12 10:00 | DS ---
DATE OF DISCHARGE: 08/11/2019 ADMISSION DIAGNOSIS: Seizures. DISCHARGE DIAGNOSIS: Resolving seizures. HOSPITAL COURSE: The patient is a pleasant 33-year-old female, who has had seizures since she was 7. Basically, she had a breakthrough seizure. We watched her for 2 days in the hospital. We consulted Neurology, adjusted her meds. Yesterday, she was doing great. We discharged her to home with close outpatient followup. DISPOSITION: Home. ACTIVITY: As tolerated. DIET: Low sodium. MEDICATIONS: Please see the MRAD. TOTAL TIME: 32 minutes. JIM LEDESMA DO DR: VAIBHAV/sumi JOB#: [id number] / [id number]
== END 2019-08-11 16:24 | disposition home or self-care (01) | DRG 101 ==
LOC: ER 10:48 → ED HOLD 11:11 → 6 SOUTH 16:42
PROVIDERS: ADMIT Internal Medicine; ATTEND Internal Medicine
DX: G40.901 Epilepsy, unspecified, not intractable, with status epilepticus (principal); E87.6 Hypokalemia; Z82.0 Family history of epilepsy and other diseases of the nervous system; Z82.49 Family history of ischemic heart disease and other diseases of the circulatory system
CPT/HCPCS: 36415; 70450; 80053; 80307; 81001; 82550; 84703; 85025; 93005; J2060; J2405; J7030; 97116; 97530; G0378

== ENCOUNTER 2021-04-19 11:24 | Emergency (ER) | payer OTHER ==
[~2021-04-19] VITALS: Ht 157.5 cm; Wt 90.0 kg
[~2021-04-19 11:24] MED LIST: DIVA500T4 PO; OXYC-325 PO; OXYC1TAB15 PO; ZONI100C26 PO; ZONI100C33 PO
--- NOTE | 2021-04-19 12:18 | PHYS DOC ---
Past Medical History Past Medical History: Seizure ([employer]) Past Surgical History: Tubal ligation (DABAUD[employer]IO [employer]) Smoking Status: Former Smoker Alcohol Use: Occasionally Drug Use: None ([facility]UD[employer] OLVERA [employer]) General Adult EDM: Chief Complaint: SEIZURE HPI: HPI: Patient is a 35 year old female who presents with witnessed seizure yesterday by her mother. Patient did not fall or hit her head and was laying down when this happened. Patient states that her mother stated that her body was tensed up. She is here complaining of right sided neck pain and tightness. She also has a chronic bilateral lower back of the head headache for the last 8 years and has had 2 MRI of brain and can not find anything. She states that since yesterday when she crosses her leg she will get tingling or pain in her thighs into her knees. She states she has been taking Depakote and zonisamide as prescribed. She states her primary care and all other care is at . Denies chest pain, fever, dizziness, vision change, worst headache of her life, nausea, vomiting, diarrhea, abdominal pain, cough, urinary symptoms, back pain. (BAUDILIO ROBERSON [employer]) Review of Systems: Review of Systems: Constitutional: Denies fever or chills. [] Eyes: Denies change in visual acuity. [] HENT: Denies nasal congestion or sore throat. [] Respiratory: Denies cough or shortness of breath. [] Cardiovascular: Denies chest pain or edema. [] GI: Denies abdominal pain, nausea, vomiting, bloody stools or diarrhea. [] : Denies dysuria. [] Musculoskeletal: Denies back pain or joint pain. + Right sided neck pain, +Bilateral thigh to knee tightness pain when legs crossed.[] Integument: Denies rash. [] Neurologic: +Chronic headache, denies focal weakness or =Tingling to thighs when legs crossed sensory changes. [] Endocrine: Denies polyuria or polydipsia. [] Lymphatic: Denies swollen glands. [] Psychiatric: Denies depression or anxiety. [] (BAUDILIO ROBERSON [employer]) Heart Score: C/O Chest Pain: No Risk Factors: Risk Factors: DM, Current or recent (<one month) smoker, HTN, HLP, family history of CAD, obesity. Risk Scores: Score 0 - 3: 2.5% MACE over next 6 weeks - Discharge Home Score 4 - 6: 20.3% MACE over next 6 weeks - Admit for Clinical Observation Score 7 - 10: 72.7% MACE over next 6 weeks - Early Invasive Strategies (BAUDILIO ROBERSON APRN) Allergies: Allergies: Allergies Coded Allergies Type Severity Reaction Last Updated Verified No Known Drug Allergies 08/09/19 No (BAUDILIO ROBERSON APRN) Physical Exam: PE: Constitutional: Well developed, well nourished, no acute distress, non-toxic appearance. [] HENT: Normocephalic, atraumatic, bilateral external ears normal, oropharynx moist, no oral exudates, nose normal. [] Eyes: PERRLA, EOMI, conjunctiva normal, no discharge. [] Neck: Normal range of motion, no tenderness, supple, no stridor. [] Cardiovascular:Heart rate regular rhythm, no murmur [] Lungs & Thorax: Bilateral breath sounds clear to auscultation [] Abdomen: Bowel sounds normal, soft, no tenderness, no masses, no pulsatile masses. [] Skin: Warm, dry, no erythema, no rash. [] Back: No tenderness, no CVA tenderness. [] Extremities: No tenderness, no cyanosis, no clubbing, ROM intact, no edema. [] Neurologic: Alert and oriented X 3, normal motor function, normal sensory function, no focal deficits noted. [] Psychologic: Affect normal, judgement normal, mood normal. [] Normal Physical Exam (BAUDILIO ROBERSON APRN) Current Patient Data: Vital Signs: Vital Signs Date Time Temp Pulse Resp B/P (MAP) Pulse Ox O2 Delivery O2 Flow Rate FiO2 04/19/21 13:30 84 16 120/82 (95) 98 Room Air 04/19/21 13:00 84 16 141/86 (104) 98 Room Air 04/19/21 12:30 86 16 135/85 (102) 98 Room Air 04/19/21 11:50 98.4 86 18 148/94 (112) 100 Room Air 98.4 (SAMI CALABRESE DO) EKG: EKG: [] (BAUDILIO ROBERSON APRN) Radiology/Procedures: Radiology/Procedures: [] Impression: [facility] [address] [place], [place] [id number] IMAGING REPORT Signed PATIENT: JOSEFINA MARTINEZ ACCOUNT: [id number] : 1985 LOCATION: ER AGE: 35 SEX: F EXAM STATUS: REG ER ORD. PHYSICIAN: BAUDILIO ROBERSON APRN REASON: seizure PROCEDURE: CT HEAD AND CERVICAL SPINE WO PQRS Compliance Statement: One or more of the following individualized dose reduction techniques were utilized for this examination: 1. Automated exposure control 2. Adjustment of the mA and/or kV according to patient size 3. Use of iterative reconstruction technique CT HEAD AND CERVICAL SPINE WITHOUT CONTRAST History: Reason: seizure / Spl. Instructions: / History: Comparison: CT head without contrast August 09, 2019. Procedure: Axial images are obtained of the head from the skull base through the vertex without IV contrast. Noncontrast helical CT of the cervical spine was performed. Axial, sagittal, and coronal reconstructions were obtained. Findings: The ventricles and sulci are normal for the patient's age. No mass-effect, midline shift, hemorrhage or obvious acute infarction is identified. Basilar cisterns are patent. Bone windows demonstrate no significant calvarial abnormality. Mucosal thickening left sphenoid sinus. No air-fluid level is seen. Mastoid air cells are well aerated. There is no evidence of acute fracture or acute malalignment of the cervical spine. The facet joints are intact. The disc spaces are maintained. The vertebral body height and alignment are maintained. No significant narrowing of the central canal is identified. Visualized soft tissues of the neck demonstrate no significant abnormalities. The visualized lung apices are clear. IMPRESSION: 1. No acute intracranial abnormality. 2. No acute fracture of the cervical spine. Electronically signed by: Keo Triplett MD (04/19/2021 12:41 PM) [id number] DICTATED and SIGNED BY: KEO TRIPLETT MD DATE: 04/19/21 [id number] (BAUDILIO ROBERSON APRN) Course & Med Decision Making: Course & Med Decision Making Pertinent Labs and Imaging studies reviewed. (See chart for details) See HPI. Alert and Oriented x4. Speaks in full clear sentences. Skin pink warm and dry. Vital sign wnl . Ambulatory with steady gait. No focal weakness. No joint laxity. No focal bony spinal tenderness. No saddle parenthesis. No trauma to her head, face or skull. No tenderness to her neck, skull or back. Did not bite tongue. No broken teeth. Pedal pulses strong and present. Cap refill less than 2 seconds. Full ROM of neck. Full ROM of all extremities. No calf tenderness. No extremity swelling. Positive for marijuana. Potassium is slightly low at 3.1. Have ordered 40meq p.o. potassium. Patient states she is wanting to be tested for Covid. She has no symptoms of Covid. [] (BAUDILIO ROBERSON APRN) Course & Med Decision Making Agree with plan and was available in the ER for consultation Sami Calabrese DO (SAMI CALABRESE DO) Samy Disclaimer: Samy Disclaimer: This electronic medical record was generated, in whole or in part, using a voice recognition dictation system. (BAUDILIO ROBERSON APRN) Departure Departure Impression: Primary Impression: Hypokalemia Disposition: HOME / SELF CARE / HOMELESS Condition: STABLE Referrals: NO PCP (PCP) Patient Instructions: Hypokalemia Additional Instructions: Follow up with your primary care or your neurologist as soon as possible. Drink plenty of fluids. Begin taking a daily multivitamin. BAUDILIO ROBERSON APRN Apr 19, 2021 12:17 SAMI CALABRESE DO Apr 19, 2021 16:02
--- NOTE | 2021-04-19 12:44 | RAD ---
PQRS Compliance Statement: One or more of the following individualized dose reduction techniques were utilized for this examinat ion: 1. Automated exposure control 2. Adjustment of the mA and/or kV according to patient size 3. Use of iterative reconstruction technique CT HEAD AND CERVICAL SPINE WITHOUT CONTRAST History: Reason: seizure / Spl. Instructions: / History: Comparison: CT head without contrast August 09, 2019. Procedure: Axial images are obtained of the head from the skull base through the vertex without IV co ntrast. Noncontrast helical CT of the cervical spine was performed. Axial, sagittal, and coronal rec onstructions were obtained. Findings: The ventricles and sulci are normal for the patient's age. No mass-effect, midline shift, hemorrhage or obvious acute infarction is identified. Basilar cistern s are patent. Bone windows demonstrate no significant calvarial abnormality. Mucosal thickening left sphenoid sinus. No air-fluid level is seen. Mastoid air cells are well aerate d. There is no evidence of acute fracture or acute malalignment of the cervical spine. The facet joints are intact. The disc spaces are maintained. The vertebral body height and alignment are maintained. No significant narrowing of the central canal is identified. Visualized soft tissues of the neck demonstrate no significant abnormalities. The visualized lung api sherron are clear. IMPRESSION: 1. No acute intracranial abnormality. 2. No acute fracture of the cervical spine. Electronically signed by: Keo Triplett MD (04/19/2021 12:41 PM) [id number]
[2021-04-19 12:45] LABS: CALCIUM 8.9 mg/dL (8.5-10.1); CREATININE 0.8 mg/dL (0.6-1.0); GFR 81.2; POTASSIUM 3.1 mmol/L (3.5-5.1)
[2021-04-19 12:47] LABS: BASO % 0 % (0-3); EOS % 0 % (0-3); HEMATOCRIT 36.4 % (36.0-47.0); HEMOGLOBIN 12.5 g/dL (12.0-15.5); LYMPH # 1.9 x10^3/uL (1.0-4.8); LYMPH % 37 % (24-48); MEAN CORPUSCULAR HEMOGLOBIN 29 pg (25-35); MEAN CORPUSCULAR HGB CONC 34 g/dL (31-37); MEAN CORPUSCULAR VOLUME 85 fL (79-100); MONO # 0.3 x10^3/uL (0.0-1.1); MONO % 6 % (0-9); NEUT % 57 % (31-73); PLATELET COUNT 238 x10^3/uL (140-400); RED BLOOD COUNT 4.28 x10^6/uL (3.50-5.40); RED CELL DISTRIBUTION WIDTH 14.1 % (11.5-14.5); WHITE BLOOD COUNT 5.3 x10^3/uL (4.0-11.0)
[2021-04-19 12:50] LABS: TOTAL BILIRUBIN 0.4 mg/dL (0.2-1.0); TOTAL PROTEIN 8.1 g/dL (6.4-8.2)
[2021-04-19 13:11] LABS: AMPHETAMINE/METHAMPHETAMINE NEG (NEG); BARBITURATES NEG (NEG); BENZODIAZEPINES NEG (NEG); CANNABINOIDS POS (NEG); COCAINE NEG (NEG); METHADONE NEG (NEG); OPIATES NEG (NEG); PHENCYCLIDINE NEG (NEG)
[2021-04-19 13:14] LABS: BILIRUBIN,URINE SMALL (NEG); CLARITY,URINE CLEAR; COLOR,URINE AMBER; NITRITE,URINE NEGATIVE (NEG); PROTEIN,URINE NEGATIVE (NEG-TRACE)
[2021-04-19 13:27] LABS: BACTERIA,URINE 0 /HPF (0-FEW); RBC,URINE OCC /HPF (0-2); WBC,URINE OCC /HPF (0-4)
[2021-04-19 13:30] VITALS: BP 120/82
[2021-04-19] MEDS ORDERED: POTASSIUM CHLORIDE 20 MEQ TABLET.ER. PO ONE (13:30)
--- NOTE | 2021-04-20 13:17 | NUR ---
IP: Informed pt of positive covid test and the need to quarantine for 10 days. Pt verbalized understanding.
== END 2021-04-19 14:00 | disposition home or self-care (01) ==
LOC: ER 11:24
DX: U07.1 COVID-19 (principal); E87.6 Hypokalemia; R56.9 Unspecified convulsions; M25.562 Pain in left knee; M25.561 Pain in right knee; R51.9 Headache, unspecified; M54.2 Cervicalgia
CPT/HCPCS: 36415; 70450; 72125; 80053; 80307; 81001; 82550; 83735; 85025; 99285; U0003; U0005